=== PATIENT | male | born 1950 | race Caucasian/White ===

== ENCOUNTER → 2017-06-23 | Outpatient (CLI) | payer MEDICARE, OTHER ==
--- NOTE | 2017-06-23 12:33 | Diagnostic Imaging Report ---
INDICATION: Productive cough. TIME OF EXAM: 12:30 p.m. No prior studies are available for comparison. FINDINGS: The heart size is normal. The lungs are clear. No pleural effusion or pneumothorax is identified. The pulmonary vascularity is normal. IMPRESSION: No acute abnormality detected. Dictated by: Dictated on workstation # [id number]
== END ==
LOC: RAD 11:44
PROVIDERS: ATTEND Nurse Practitioner Family
DX: R05 Cough (principal); R09.89 Other specified symptoms and signs involving the circulatory and respiratory systems
CPT/HCPCS: 71046

== ENCOUNTER → 2017-06-23 | Outpatient (CLI) | payer MEDICARE, OTHER ==
--- NOTE | 2017-06-23 13:05 | Diagnostic Imaging Report ---
PROCEDURE: CT abdomen and pelvis without contrast. TECHNIQUE: Multiple contiguous axial images were obtained through the abdomen and pelvis without the use of intravenous contrast. INDICATION: Flank pain. FINDINGS: There are coronary artery calcifications. The lung bases are clear. The liver is normal in size and without focal lesions. The gallbladder is surgically absent. There is no biliary ductal dilatation. The spleen is normal. The pancreas and adrenal glands are unremarkable. There are several nonobstructing stones in the right kidney. There is a tiny 2 mm nonobstructing stone in the left kidney. There is left hydronephrosis secondary to a 7 mm stone seen just below the left UPJ. The abdominal aorta is nonaneurysmal. The bowel gas pattern is nonspecific. There is no free air. There is no ascites. There is some diverticular disease of the colon without evidence of diverticulitis. The bladder is unremarkable. There is no pelvic mass or adenopathy. There is grade 1 spondylolisthesis of L4 and L5. There are otherwise diffuse degenerative changes in the spine. IMPRESSION: 1. Moderate left hydronephrosis secondary to a 7 mm stone seen just below the left UPJ. There are additional nonobstructing renal calculi bilaterally, right greater than left. 2. Diverticular disease without evidence of diverticulitis. 3. Degenerative changes in the spine, as described. Dictated by: Dictated on workstation # [id number]
== END ==
LOC: RAD 11:41
PROVIDERS: ATTEND Urology
DX: N13.2 Hydronephrosis with renal and ureteral calculous obstruction (principal); K57.90 Diverticulosis of intestine, part unspecified, without perforation or abscess without bleeding; M43.16 Spondylolisthesis, lumbar region; Z90.49 Acquired absence of other specified parts of digestive tract
CPT/HCPCS: 74176

== ENCOUNTER 2017-06-30 05:39 | Outpatient (CLI) | payer MEDICARE, OTHER ==
[~2017-06-30] VITALS: Ht 177.8 cm; Wt 112.5 kg
[2017-06-30] MEDS ORDERED: SAW/1TAB2 PO (14:24)
[2017-06-30] MEDS ORDERED: CALC625T14 PO (14:24)
[2017-06-30] MEDS ORDERED: RT-ALBUINH IH (14:24)
[2017-06-30] MEDS ORDERED: ROSU5TAB PO (14:24)
[2017-06-30] MEDS ORDERED: ASPI-586 PO (14:24)
[2017-06-30] MEDS ORDERED: METF500T4 PO (14:24)
[2017-06-30] MEDS ORDERED: ALFU10TA11 PO (14:24)
[2017-06-30] MEDS ORDERED: MONT10TA24 PO (14:24)
[2017-06-30] MEDS ORDERED: LACT1CAP64 PO (14:24)
[2017-06-30] MEDS ORDERED: NF-XOP-HFA IH (14:24)
[2017-06-30] MEDS ORDERED: ALPR0.5T PO (14:24)
[2017-06-30] MEDS ORDERED: GLUC1CAP37 PO (14:24)
[2017-06-30] MEDS ORDERED: DULA0.75 SQ (14:24)
[2017-06-30] MEDS ORDERED: OMEP40CA36 PO (14:24)
[2017-06-30] MEDS ORDERED: LORA10TA7 PO (14:24)
[2017-06-30] MEDS ORDERED: GLIM2TAB PO (14:24)
[2017-07-01] MEDS ORDERED: NITR-65 PO (09:50)
[2017-07-01] MEDS ORDERED: HYDR-3875 PO (09:50)
== END 2017-06-30 11:24 ==
LOC: PREOP 05:39
PROVIDERS: ATTEND Urology
DX: Z01.818 Encounter for other preprocedural examination (principal); N20.1 Calculus of ureter

== ENCOUNTER 2017-07-01 05:56 | Day surgery (SDC) | payer MEDICARE, OTHER ==
[~2017-07-01] VITALS: Ht 177.8 cm; Wt 112.5 kg
[~2017-07-01 05:56] MED LIST: ALFU10TA11 PO; ALPR0.5T PO; ASPI-586 PO; CALC625T14 PO; DULA0.75 SQ; GLIM2TAB PO; GLUC1CAP37 PO; LACT1CAP64 PO; LORA10TA7 PO; METF500T4 PO; MONT10TA24 PO; NF-XOP-HFA IH; OMEP40CA36 PO; ROSU5TAB PO; RT-ALBUINH IH; SAW/1TAB2 PO
[2017-07-01 06:30] VITALS: BP 145/79
[2017-07-01] MEDS ORDERED: cefTRIAXone 1 GM (ROCEPHIN) VIAL ONE (07:01)
[2017-07-01] MEDS ORDERED: NS (IVPB) 50 ML ONE (07:01)
--- NOTE | 2017-07-01 07:02 | Progress Note-Pre Operative ---
Pre-Operative Progress Note H&P Reviewed The H&P was reviewed, patient examined and no changes noted. Date Seen by Provider: Jul 01, 2017 Time Seen by Provider: 07:01 Date H&P Reviewed: Jul 01, 2017 Time H&P Reviewed: 07:01 Pre-Operative Diagnosis: LT PROXIMAL URETERAL STONE NICOLAS GRAHAM MD Jul 01, 2017 7:02 am
[2017-07-01] MEDS ORDERED: LACTATED RINGERS 1,000 ML IV PRN (07:32)
--- NOTE | 2017-07-01 07:36 | Discharge Inst-Urology ---
Discharge Inst-Urology Discharge Medications New, Converted, or Re-newed RX: RX on Chart Patient Instructions/Follow Up Plan Please make appointment to been seen in office Thursday 07/13, KUB prior to it KUB on way home Post ESWL instructions Increase oral fluids for 48 hours and then as needed. Diet and Activity as tolerated. If questions or concerns contact your physician Or seek help at emergency department. NICOLAS GRAHAM MD Jul 01, 2017 7:36 am
--- NOTE | 2017-07-01 07:37 | Progress Note-Post Operative ---
Post-Operative Progess Note Surgeon (s)/Loan Review Officer (s) Surgeon NICOLAS GRAHAM MD Loan Review Officer: N/A Pre-Operative Diagnosis LT PROXIMAL URETERAL STONE Post-Operative Diagnosis SAME Procedure & Operative Findings Date of Procedure 07/01/17 Procedure Performed/Findings LT ESWL Anesthesia Type GENERAL Estimated Blood Loss Estimated blood loss (mL): N/A Specimens/Packing Specimens Removed N/A Packing: N/A NICOLAS GRAHAM MD Jul 01, 2017 7:37 am
[2017-07-01] MEDS ORDERED: cefTRIAXone INJECTION 1,000 MG in NS (IVPB) 50 ML IV ONE (07:45)
--- NOTE | 2017-07-01 07:47 | Diagnostic Imaging Report ---
INDICATION: Left ureteral stone. Comparison with CT scan of 06/23/2017. EXAMINATION: KUB FINDINGS: Calculus does appear to be present just below the level of the third left transverse process measuring approximately 7 mm. This does correlate with CT findings and does not show significant change in position. 4 mm calculus in the right kidney mid calyx appears unchanged as well. IMPRESSION: Bilateral calculi appear unchanged with a ureteral calculus at the level of the left third transverse process again demonstrated. Dictated by: Dictated on workstation # [id number]
[2017-07-01] MEDS ORDERED: ONDANSETRON 4 MG/2 ML (SDV) Z0FRAN IVP PRN (08:30)
[2017-07-01 09:10] VITALS: BP 136/73
[2017-07-01 09:40] VITALS: BP 140/79
[2017-07-01] MEDS ORDERED: HYDR-3875 PO (09:50)
[2017-07-01] MEDS ORDERED: NITR-65 PO (09:50)
[2017-07-01 10:10] VITALS: BP 131/79
--- NOTE | 2017-07-01 10:16 | Diagnostic Imaging Report ---
Indication: Status post ESWL. TIME OF EXAM: 10:17 AM COMPARISON: Correlation is made with prior study earlier the same day. FINDINGS: Calcific density overlying the lower pole of the right kidney is unchanged approximately 4 mm in size. The calcific density adjacent to the left transverse process of L3 appears similar. There is a calcific density overlying the upper pole of the right kidney, approximately 3 mm in size. Bowel gas pattern is unremarkable. IMPRESSION: Bilateral urinary tract calculi, similar to the radiograph earlier the same day. Dictated by: Dictated on workstation # [id number]
--- NOTE | 2017-07-01 18:24 | OPERATIVE REPORT ---
DATE OF SERVICE: 07/01/2017 PREOPERATIVE DIAGNOSIS: Left proximal ureteral stone. POSTOPERATIVE DIAGNOSIS: Left proximal ureteral stone. OPERATION PERFORMED: Left ESWL. SURGEON: Dr. Graham. ANESTHESIA: General. COMPLICATIONS: None. PROCEDURE: Under satisfactory general anesthesia, the patient in supine position on the ESWL table, the left proximal ureteral stone was localized and shocks were delivered at kV of 6. Total of 3000 shocks were delivered with good fragmentation of the stone. The patient received 40 mg of Lasix and 30 mg of Toradol IV at the end of the procedure. He tolerated the procedure and anesthesia well and was sent to recovery room in stable condition. Job ID: [id number] DocumentID: [id number] Dictated Date: 07/01/2017 08:02:56 Valve Inserter Date: 07/01/2017 18:24:10 Dictated By: NICOLAS GRAHAM MD
== END 2017-07-01 10:30 | disposition home or self-care (01) ==
LOC: SDC 05:56
PROVIDERS: ATTEND Urology
DX: N20.1 Calculus of ureter (principal); E11.9 Type 2 diabetes mellitus without complications; J45.909 Unspecified asthma, uncomplicated; E78.5 Hyperlipidemia, unspecified; F41.9 Anxiety disorder, unspecified; K21.9 Gastro-esophageal reflux disease without esophagitis; G47.33 Obstructive sleep apnea (adult) (pediatric); Z79.82 Long term (current) use of aspirin; Z79.84 Long term (current) use of oral hypoglycemic drugs; Z79.899 Other long term (current) drug therapy; Z87.891 Personal history of nicotine dependence
CPT/HCPCS: 74018; 82962; 87081

== ENCOUNTER → 2017-07-13 | Outpatient (CLI) | payer MEDICARE, OTHER ==
[~2017-07-13] MED LIST changes: +HYDR-3875 PO; +NITR-65 PO
--- NOTE | 2017-07-13 15:57 | Diagnostic Imaging Report ---
INDICATION: Left ureteral stone, post lithotripsy. TIME OF EXAM: 02:18 p.m. Correlation is made with prior study of 07/01/2017. FINDINGS: Previously noted fragmented calculus in the left mid ureter is not well appreciated on today's study. No definite pelvic calcifications are seen. Probable right lower pole renal calculi are unchanged. Bowel gas pattern is unremarkable. IMPRESSION: Previously noted left ureteral calculi are not visualized. Dictated by: Dictated on workstation # [id number]
== END ==
LOC: RAD 14:04
PROVIDERS: ATTEND Urology
DX: N20.2 Calculus of kidney with calculus of ureter (principal); Z98.890 Other specified postprocedural states
CPT/HCPCS: 74018

== ENCOUNTER → 2017-07-20 | Outpatient (CLI) | payer MEDICARE, OTHER | LOC: LAB 17:04 | PROVIDERS: ATTEND Urology | DX: N20.9 Urinary calculus, unspecified (principal) | CPT/HCPCS: 36415; 82140; 82340; 82507; 82570; 83735; 83945; 83986; 84105; 84133; 84300; 84392; 84560 ==

== ENCOUNTER → 2017-08-10 | Outpatient (CLI) | payer OTHER, MEDICARE ==
--- NOTE | 2017-08-10 15:35 | Diagnostic Imaging Report ---
EXAMINATION: Supine abdomen at 2:37 p.m. INDICATION: Post ESWL left ureteral stone. Two supine views were obtained. FINDINGS: The prior exam of 07/13/2017 failed to show any sign of a calculus overlying the left kidney or along the expected path of the left ureter. On this exam, however, there is now a 4.4 mm calcification lying just inferior to the left transverse process of L3. This finding is difficult to identify on the other supine view but may be overlying the transverse process. The nonobstructive calculi overlying the right kidney seen previously are again evident and no different. There is no pelvic calcification identified. IMPRESSION: 1. The findings do suggest a small 4.4 mm calculus along the expected path of the left ureter. If further study is desired, then CT of the abdomen and pelvis would be recommended. 2. There are nonobstructive calculi overlying the right kidney. Dictated by: Dictated on workstation # [id number]
== END ==
LOC: RAD 14:01
PROVIDERS: ATTEND Urology
DX: N20.2 Calculus of kidney with calculus of ureter (principal); Z98.890 Other specified postprocedural states
CPT/HCPCS: 74018

== ENCOUNTER 2018-07-26 13:08 | Outpatient (RCR) | payer MEDICARE, OTHER ==
[~2018-07-26 13:08] MED LIST changes: +METF-397 PO; -METF500T4 PO
--- NOTE | 2018-07-26 17:40 | Diagnostic Imaging Report ---
INDICATION: Hematuria. COMPARISON: 08/10/2017. FINDINGS: There are no radiographically apparent renal stones. No mineralization along the expected courses of the ureters. Cholecystectomy. Nonobstructive bowel gas pattern. Moderate volume of colonic stool. Postoperative changes of laminectomy and interbody fusion at L5-S1. IMPRESSION: No radiographically apparent urinary tract calculi. Dictated by: Dictated on workstation # [id number]
== END 2018-10-24 | disposition home or self-care (01) ==
LOC: RAD 13:08
PROVIDERS: ATTEND Urology
DX: N20.0 Calculus of kidney (principal)
CPT/HCPCS: 36415; 74018; 82140; 82340; 82507; 82570; 83735; 83945; 83986; 84105; 84133; 84300; 84392; 84560